=== PATIENT | female | born 1985 | race Caucasian/White ===

== ENCOUNTER 2017-01-19 14:43 | Emergency (ER) | payer OTHER ==
--- NOTE | 2017-01-19 15:17 | ED Physician Documentation ---
Sore Throat/Dental Pain - HISTORIAN Historian: patient - HPI Stated Complaint: dental pain Chief Complaint: Dental Pain Additional Information: started today Onset: hours (5) Context: Dental Caries Worsened By: heat, cold Relieved By: nothing - ROS CONST: no problems CVS/RESP: none GI/: denies: problems urinating, nausea, vomiting MS/SKIN/LYMPH: denies: muscle aches, rash, leg swelling, ankle swelling NEURO/PSYCH: none - PAST HX Past History: gum disease Immunizations: referred to PCP - SOCIAL HX Smoking History: cigarettes Alcohol Use: none Drug Use: none - FAMILY HX Family History: Yes - REVIEWED ASSESSMENTS Nursing Assessment Reviewed: Yes Vitals Reviewed: Yes Progress - Results/Orders Results/Orders: no testing ordered - Progress Progress: pt. given toradol 60 mg im in er, amoxicillin 500 mg p.o. in er Critical Care Note - Critical Care Note Total Time (mins): 0 ED Results Lab/Radiology - Lab Results Lab Results: none ordered - Radiology Radiology Impressions: none ordered - Orders Orders: ED Orders Category Date Time Status Amoxicillin [Amoxil] Med 01/19/17 15:01 Discontinued 500 mg PO NOW ONE Ketorolac Tromethamine [Toradol] Med 01/19/17 15:01 Discontinued 60 mg IM NOW ONE Dental Pain Physical Exam - EXAM General Appearance: alert, moderate distress Head/Neck: head nml inspection, trachea midline, no lymphadenopathy, thyroid nml. No: pain over sinuses Eyes: eyes nml inspection, PERRL Mouth/Throat: lips nml, pharynx nml, gum swelling around teeth (left lower molar ), other (dental richi left lower molar) Ear/Nose: nml inspection Respiratory: no resp. distress CVS: reg. rate & rhythm, heart sounds nml Abdomen: soft, no organomegaly, normal bowel sounds Extremities: non-tender Skin: warm/dry Neuro/Psych: No: weakness, numbness, anxiety, depression Discharge Clincal Impression: Dental caries Referrals: Primary Doctor,No [Primary Care Provider] - 2 Days Comments: discharged with scripts for amoxicillin, meloxicam, tizanidine and 2% viscous lidocaine. Condition: Stable Decision to Admit: NO Decision Time: 15:15
[2017-01-19] MEDS: KETOROLAC TROMETHAMINE 60 MG/2 ML VIAL IM ONE (15:30)
[2017-01-19] MEDS: AMOXICILLIN 500 MG CAPSULE PO ONE (15:30)
[2017-01-19 18:31] VITALS: BP 120/68
== END 2017-01-19 15:30 | disposition home or self-care (01) ==
LOC: ED 14:43
DX: K02.9 Dental caries, unspecified (principal)
CPT/HCPCS: 96372; 99283; J1885

== ENCOUNTER 2017-04-28 12:23 | Emergency (ER) | payer OTHER ==
--- NOTE | 2017-04-28 12:28 | ED Physician Documentation ---
Upper Respiratory Symptoms - HISTORIAN Historian: patient - HPI Stated Complaint: rash Chief Complaint: Skin Rash Onset: other (3 weeks ) Duration: intermittent episodes Context: other (area on nose and then elbows and under arms ) Associated Symptoms: denies: fever, chills, sore throat, productive cough, shortness of breath Worsened by Deep Breath: No - ROS CVS/RESP: none LYMPH: rash GI/: none NEURO/PSYCH: denies: fainting, dizziness, confusion MS/SKIN: rash. denies: joint pain, muscle aches - PAST HX Lung Disease: asthma Surgeries/Procedures: none Immunizations: referred to PCP - SOCIAL HX Smoking History: non-smoker Alcohol Use: none Drug Use: none - REVIEWED ASSESSMENTS Nursing Assessment Reviewed: Yes Vitals Reviewed: Yes <Gardenia Navarro - Last Filed: 04/28/17 13:05> - ROS CONST/EYES: eye redness, eye itching - FAMILY HX Family History: no significant history <Bill Rodriguez - Last Filed: 04/28/17 13:37> - PAST HX Allergies/Adverse Reactions: Allergies Allergy/AdvReac Type Severity Reaction Status Date / Time No Known Allergies Allergy Verified 04/28/17 12:55 Home Medications: Ambulatory Orders Medication Instructions Recorded Albuterol Sulfate [Proair 2 puff IN PRN PRN 01/19/17 Respiclick] Citalopram Hydrobromide [Celexa] 10 mg PO DAILY 01/19/17 Ciprofloxacin HCl [Cipro] 125 mg PO D 04/28/17 - VITAL SIGNS Vital Signs: Vital Signs Temp Pulse Resp BP Pulse Ox 98.1 F 72 16 110/68 97 04/28/17 12:24 04/28/17 13:26 04/28/17 13:26 04/28/17 13:26 04/28/17 13:26 Upper Respiratory Symptoms - EXAM General Appearance: no acute distress, alert EENT: other (right nare with cellulitis and small red raised areas on right inner eye ) Respiratory: no resp. distress, breath sounds nml Abdomen: non-tender CVS: reg rate & rhythm, heart sounds normal Skin: other (psorasis plaques on bilateral elbows and bilateral axilla ) Extremities: non-tender Neuro/Psych: oriented x3, neuro intact, mood/affect nml <Gardenia Navarro - Last Filed: 04/28/17 13:05> Discharge Decision to Admit: NO Date of Decison to Admit: 04/28/17 Decision Time: 13:06 <Gardenia Navarro - Last Filed: 04/28/17 13:05> <Bill Rodriguez - Last Filed: 04/28/17 13:37> Clincal Impression: Psoriasis Cellulitis Qualifiers: Site of cellulitis: face Qualified Code(s): L03.211 - Cellulitis of face Referrals: Primary Doctor,No [Primary Care Provider] - 2 Days Additional Instructions: Dr Lopez Condition: Stable Disposition: 01 HOME, SELF-CARE
[2017-04-28 13:27] VITALS: BP 110/68
== END 2017-04-28 13:26 | disposition home or self-care (01) ==
LOC: ED 12:23
DX: L40.9 Psoriasis, unspecified (principal); L03.211 Cellulitis of face
CPT/HCPCS: 99283

== ENCOUNTER 2017-10-01 10:13 | Emergency (ER) | payer BC, OTHER ==
[2017-10-01 10:25] VITALS: BP 116/53
--- NOTE | 2017-10-01 11:34 | ED Physician Documentation ---
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 is on [id number] for prevent uti Onset: days ago (4) Duration: continues in ED Recent Injury: No Context: lifting, turning, bending Where: work Severity: moderate Quality: dull, similar- prior back pain. denies: burning, sharp Associated Symptoms: denies: fever, chills, sweating, constipation Worsened By:: cough, other (any) Relieved By: remaining still - ROS CONST: no problems. denies: recent illness CVS/RESP: none EYES/ENT: none MS/SKIN/LYMPH: none Neuro/Psych: none GI/: denies: abdominal pain - PAST HX Past History: other (uti) Other History: other (asthma freq uti) Surgeries/Procedures: none Allergies/Adverse Reactions: Allergies Allergy/AdvReac Type Severity Reaction Status Date / Time No Known Allergies Allergy Verified 10/01/17 10:33 Home Medications: Ambulatory Orders Medication Instructions Recorded Citalopram Hydrobromide [Celexa] 10 mg PO DAILY 01/19/17 Ciprofloxacin HCl [Cipro] 125 mg PO D 04/28/17 - SOCIAL HX Smoking History: non-smoker Alcohol Use: none Drug Use: none - FAMILY HX Family History: no significant history - VITAL SIGNS Vital Signs: Vital Signs Temp Pulse Resp BP Pulse Ox 78 18 116/53 99 10/01/17 10:44 10/01/17 10:44 10/01/17 10:44 10/01/17 10:44 - REVIEWED ASSESSMENTS Nursing Assessment Reviewed: Yes Vitals Reviewed: Yes Low Back Pain/Injury - Physical Exam General Appearance: mild distress EENT: eye inspection normal Neck: non-tender. No: muscle spasm, painful movement of neck Resp/CVS: chest non-tender, breath sounds nml Abdomen: non-tender, other (rt flank milt palp pain---slr=pos) Back: CVA tenderness Straight Leg Raising: Positive Right Neuro/Psych: oriented x3, motor nml, sensation nml Skin: warm/dry, normal color. No: cyanosis, diaphoresis, jaundice, mottled Extremities: non-tender, normal range of motion. No: no evidence of injury, no edema Discharge Clincal Impression: acute lumbar ligt sprain, hx freq uti Referrals: Allen Morley MD [Primary Care Provider] - 2 Days Comments: home avoid lifting bending-meds Disposition: 01 HOME, SELF-CARE Decision to Admit: NO Decision Time: 11:39
[2017-10-01 13:51] LABS: APPEARANCE,URINE CLEAR (CLEAR); COLOR,URINE YELLOW (YELLOW); OCCULT BLOOD,URINE NEGATIVE (NEGATIVE); UROBILINOGEN URINE 0.2 Eu (0.2-1.0)
== END 2017-10-01 10:44 | disposition home or self-care (01) ==
LOC: ED 10:13
DX: S39.012A Strain of muscle, fascia and tendon of lower back, initial encounter (principal); X58.XXXA Exposure to other specified factors, initial encounter; Z87.440 Personal history of urinary (tract) infections
CPT/HCPCS: 81002; 99282

== ENCOUNTER 2017-12-15 13:16 | Emergency (ER) | payer BC ==
--- NOTE | 2017-12-15 14:23 | ED Physician Documentation ---
Neck Injury/Pain - HISTORIAN Historian: patient - HPI Stated Complaint: Neck pain Chief Complaint: Neck Pain Additional Information: playing with children and turned neck quickly, heard a pop and immediate pain and stiffness Onset: days ago (2) Duration: continues in ED Recent Injury: Yes Context: other (tuned head and heard a pop and immediate pain and stiffness) Where: home Other Injuries: neck Severity: moderate Quality: sharp Front/Back of Body, Lg (Color): 1 - pain Associated Symptoms: headache Exacerbated By: movement of neck Relieved By: remaining still Further Comments: no - ROS NEURO/PSYCH: depression. denies: difficulty with speech, anxiety EYES/ENT: none CVS/RESP: none CONST: no problems GI/: denies: nausea, vomiting, problems urinating, incontinence MS/SKIN/LYMPH: other (neck pain and stiffness) - PAST HX Past History: other (depression, uti's) Surgeries/Procedures: none CT/MRI: Yes Immunizations: referred to PCP Allergies/Adverse Reactions: Allergies Allergy/AdvReac Type Severity Reaction Status Date / Time No Known Allergies Allergy Verified 12/15/17 13:31 Home Medications: Ambulatory Orders Medication Instructions Recorded Citalopram Hydrobromide [Celexa] 30 mg PO DAILY 01/19/17 Ciprofloxacin HCl [Cipro] 125 mg PO D 04/28/17 - SOCIAL HX Smoking History: cigarettes Alcohol Use: none Drug Use: none - FAMILY HX Family History: no significant history - VITAL SIGNS Vital Signs: Vital Signs Temp Pulse Resp BP Pulse Ox 98.3 F 79 16 112/73 97 12/15/17 14:30 12/15/17 14:30 12/15/17 14:30 12/15/17 14:30 12/15/17 14:30 - REVIEWED ASSESSMENT Nursing Assessment Reviewed: Yes Vitals Reviewed: Yes Progress - Results/Orders Results/Orders: c-spine x-ray ordered - Progress Progress: pt. stable entire time in er Critical Care Note - Critical Care Note Total Time (mins): 0 ED Results Lab/Radiology - Lab Results Lab Results: none ordered - Radiology Radiology Impressions: cervical x-rays show straightening of cervical spine suggesting spasm - Orders Orders: ED Orders Category Date Time Status C SPINE 2 OR 3 VIEWS [RAD] Stat Exams 12/15/17 Ordered Neck Injury/Pain - Physical Exam General Appearance: alert, moderate distress EENT: nml ENT inspection, pharynx nml Neck: muscle spasm, decreased ROM, other (no vertebral point tenderness). No: lymphadenopathy, thyromegaly, subcutaneous emphysema Nexus Criteria: Nexus criteria neg Back: non-tender, painless ROM. No: vertebral point-tendernes Respiratory: chest non-tender, breath sounds nml CVS: heart sounds nml, bilateral pulses nml Abdomen: non-tender, no organomegaly, nml bowel sounds, no distention Skin: warm/dry, normal color Extremities: non-tender, normal range of motion, no evidence of injury Neuro/Psych: oriented x3, CN's nml as tested, sensation nml, motor nml, mood/ affect nml Discharge Clincal Impression: Cervical strain, acute Qualifiers: Encounter type: initial encounter Qualified Code(s): S16.1XXA - Strain of muscle, fascia and tendon at neck level, initial encounter Referrals: Allen Morley MD [Primary Care Provider] - 2 Days Comments: Discharged in stable condition with script for norflex 100 mg #14 1 pill bid and meloxicam 7.5 mg #14 p.o. bid Condition: Stable Disposition: 01 HOME, SELF-CARE Decision to Admit: NO Decision Time: 14:23
[2017-12-15 14:31] VITALS: BP 112/73
--- NOTE | 2017-12-15 18:08 | Diagnostic Imaging Report ---
RANCHO GAMBINO [facility] [address] [facility] [address] [address] Report Submission Date: December 15, 2017 2:01:33 PM CDT Patient Study Name: LUIS ANGEL FARNSWORTH Date: December 15, 2017 1:43:18 PM CDT Modality Type: DX Gender: F Description: SPINE : 83 Institution: [facility] Physician: RANCHO GAMBINO 3-view cervical spine Clinical history: C-SPINE, NECK PAIN AFTER TWISTING INJURY X2 DAYS AGO, PT STATES SHE FELT A POP AND HAS PAIN AND DECREASED ROM SINCE Findings: Examination of cervical spine in AP, lateral and open mouth views demonstrates straightening of normal cervical lordosis. Prevertebral soft tissues are within normal limits. The C1/C2 articulation is normal and the base of the odontoid is intact. No evident fracture. Impression: 1. Straightening of the normal cervical lordosis. 2. No fracture. Electronically signed on December 15, 2017 2:01:33 PM CDT by: Hero GUZMAN
== END 2017-12-15 14:30 | disposition home or self-care (01) ==
LOC: ED 13:16
DX: S16.1XXA Strain of muscle, fascia and tendon at neck level, initial encounter (principal); Y93.F9 Activity, other caregiving
CPT/HCPCS: 72040

== ENCOUNTER 2018-02-26 11:59 | Emergency (ER) | payer BC ==
[2018-02-26 12:19] VITALS: BP 113/73
--- NOTE | 2018-02-26 12:47 | ED Physician Documentation ---
Low Back Pain - HISTORIAN Historian: patient - HPI Stated Complaint: low back pain Chief Complaint: Low Back Pain/ Injury Additional Information: onset 2 d ago recurrent lo backk pain no rad - centrally located l3-4 midline and to lt-musc spasm no new injuriess but has worked sev [employer]-no episodes several months-ibu 2400 per day min to no help. History: denies: history of chronic pain: Duration: continues in ED, worse (perhaps) Recent Injury: No Severity: moderate Quality: burning, dull, similar- prior back pain Associated Symptoms: other (pain w/ going to sitting and to rising posn-helps to keep back straight). denies: fever, chills, sweating, constipation, incontinence, nausea, vomiting, problems urinating, difficulty walking Worsened By:: movement to RT flexion, movement to LT flexion. denies: cough, deep breaths Relieved By: remaining still (has used heat pad) - ROS CONST: no problems CVS/RESP: none EYES/ENT: none MS/SKIN/LYMPH: none Neuro/Psych: none GI/: denies: abdominal pain, black stools - PAST HX Past History: back injury, other (depression recurrent uti) Surgeries/Procedures: none Allergies/Adverse Reactions: Allergies Allergy/AdvReac Type Severity Reaction Status Date / Time No Known Allergies Allergy Verified 02/26/18 12:14 Home Medications: Ambulatory Orders Medication Instructions Recorded Citalopram Hydrobromide [Celexa] 30 mg PO DAILY 01/19/17 Ciprofloxacin HCl [Cipro] 125 mg PO D 04/28/17 - SOCIAL HX Smoking History: less than 1 pack/day Alcohol Use: none Drug Use: none - FAMILY HX Family History: no significant history - VITAL SIGNS Vital Signs: Vital Signs Temp Pulse Resp BP Pulse Ox 98.3 F 82 16 113/73 97 02/26/18 12:15 02/26/18 12:15 02/26/18 12:15 02/26/18 12:15 02/26/18 12:15 - REVIEWED ASSESSMENTS Nursing Assessment Reviewed: Yes Vitals Reviewed: Yes Low Back Pain/Injury - Physical Exam General Appearance: mild distress, moderate distress EENT: eye inspection normal Neck: non-tender Resp/CVS: chest non-tender, breath sounds nml, heart sounds nml Abdomen: non-tender Back: vertebral point-tendernes (L 2-3-4 w/ lt lspinal musc spasm) Straight Leg Raising: Positive Left Neuro/Psych: oriented x3, sensation nml, mood/affect nml Skin: warm/dry, normal color. No: cyanosis, diaphoresis, jaundice Extremities: non-tender, normal range of motion, no evidence of injury Discharge Clincal Impression: acute exaberation lo back pain Referrals: Allen Morley MD [Primary Care Provider] - 2 Days Comments: hmp w/meds Condition: Good Disposition: 01 HOME, SELF-CARE Decision to Admit: NO Decision Time: 13:07
== END 2018-02-26 12:47 | disposition home or self-care (01) ==
LOC: ED 11:59
DX: M54.5 Low back pain (principal)

== ENCOUNTER 2018-09-06 16:17 | Emergency (ER) | payer BC ==
--- NOTE | 2018-09-06 16:48 | ED Physician Documentation ---
Abdominal Pain - HISTORIAN Historian: patient - HPI Stated Complaint: abdominal pain Chief Complaint: Abdominal Pain Additonal Information: Patient presents to ED with a 10 day history of LLQ, RLQ pain and nausea. Patient states she was hospitalized in [place] over the past 10 days after ingesting tylenol, ibuprofen and bendryl in an attempt to commit suicide. She states she ingested about 400 pills. During her hospital stay she had abdominal pain the entire time. At discharge she was given Roxicodone and Zofran. Her symptoms have not improved. Onset: hours (10 days) Duration: constant Timing: still present Context: denies: out of country travel, bad food Severity: moderate Quality: aching, dull, sharp Associated Symptoms: nausea. denies: fever, chills, vomiting, diarrhea Exacerbated by: walking Relieved by: nothing - ROS CONST: no problems GI/: none CVS/RESP: none EYES/ENT: none MS/SKIN/LYMPH: none NEURO/PSYCH: none - SOCIAL HX Smoking History: non-smoker Alcohol Use: none Drug Use: none - FAMILY HX Family History: none - PAST HX Past History: none Ischemic Bowel Risk Factors: none Other History: none Surgeries/Procedures: none Home Medications: Ambulatory Orders Medication Instructions Recorded Ciprofloxacin HCl [Cipro] 250 mg PO BID 09/06/18 Hydroxyzine Pamoate [Vistaril] 25 mg PO TID 09/06/18 Trazodone HCl 50 mg PO DAILY 09/06/18 Vortioxetine Hydrobromide 5 mg PO DAILY 09/06/18 [Trintellix] Allergies/Adverse Reactions: Allergies Allergy/AdvReac Type Severity Reaction Status Date / Time No Known Allergies Allergy Verified 02/26/18 12:14 - VITAL SIGNS Vital Signs: Vital Signs Temp Pulse Resp BP Pulse Ox 88 16 131/84 95 09/06/18 16:27 09/06/18 16:27 09/06/18 16:27 09/06/18 16:27 - REVIEWED ASSESSMENTS Nursing Assessment Reviewed: Yes Vitals Reviewed: Yes ED Results Lab/Radiology - Lab Results Lab Results: Lab Results 09/06/18 09/06/18 09/06/18 18:35 18:35 18:35 WBC 9.80 K/ul K/ul (4.00-12.00) RBC 4.49 M/ul M/ul (3.90-5.20) Hgb 13.2 g/dL g/dL (12.0-16.0) Hct 40.1 % % (34.5-46.5) MCV 89.0 fl fl (80.0-100.0) MCH 29.3 pg pg (28.0-34.0) MCHC 32.8 g/dL g/dL (30.0-36.0) RDW 13.5 % % (11.3-14.3) Plt Count 338 K/mm3 K/mm3 (130-400) Neut % (Auto) 62.7 % % (39.0-79.0) Lymph % (Auto) 25.1 % % (16.0-50.0) Woods % (Auto) 7.6 % % (0.0-11.0) Eos % (Auto) 3.9 % % (0.0-6.8) Baso % (Auto) 0.7 (0.0-1.5) Neut # (Auto) 6.2 # k/uL # k/uL (1.4-7.7) Lymph # (Auto) 2.5 # k/uL # k/uL (0.6-4.0) Woods # (Auto) 0.8 # k/uL # k/uL (0.0-0.9) Eos # (Auto) 0.4 # k/uL # k/uL (0.0-0.6) Baso # (Auto) 0.1 # k/uL # k/uL (0.0-0.5) Sodium 137 mmol/L mmol/L (136-145) Potassium 3.9 mmol/L mmol/L (3.5-5.1) Chloride 104 mmol/L mmol/L (98-107) Carbon Dioxide 27 mmol/L mmol/L (22-30) BUN 7 mg/dL mg/dL (7-17) Creatinine 0.60 mg/dL mg/dL (0.52-1.04) Estimated Creat Clear 164 Est GFR ( Amer) > 60 (60 - ) Est GFR (Non-Af Amer) > 60 (60 - ) Glucose 83 mg/dL mg/dL (74-106) Calcium 9.3 mg/dL mg/dL (8.4-10.2) Total Bilirubin 0.2 mg/dL mg/dL (0.2-1.3) AST 34 U/L U/L (15-46) ALT 49 U/L U/L (13-69) Alkaline Phosphatase 97 U/L U/L (38-126) Total Protein 6.7 g/dL g/dL (6.3-8.2) Albumin 4.1 g/dL g/dL (3.5-5.0) Serum HCG, Qual Negative (NEGATIVE) - Radiology Radiology Impressions: CT A/P W/ CONTRAST, LLQ, RUQ ABD PAIN/NAUSEA. PT STATES GENERALIZE ABD PAIN FOR A WEEK, WORSE TODAY, NO SURGICAL HISTORY (DICOM Hx) TECHNIQUE: 5 mm contiguous axial images of the abdomen and pelvis with IV contrast. With; 95 CC OMNIPAQUE FINDINGS: Fatty changes present in the liver. Spleen adrenal glands and pancreas are unremarkable. The gallbladder is contracted with possible gallstones. Kidneys enhance normally. The colon is distended with retained fecal material. The appendix is unremarkable. The pelvis shows ovarian cysts pelvic pain varices and prominent endometrium. The bladder is unremarkable. Small inguinal lymph nodes are present. One of these lymph node measures up to 1.5 cm. IMPRESSION: Contracted gallbladder with possible stones. Ultrasound followup is recommended after fasting Constipation Pelvic vein varices and ovarian cysts.. Negative the appendix 1.5 cm left inguinal lymph node Electronically signed on Sep 06, 2018 6:37:09 PM COTTON STRIPPER by: Carl Camara - Orders Orders: ED Orders Category Date Time Status Place IV Lock 1T Care 09/06/18 16:[address] ABD & PELVIS W/ CON Stat Exams 09/06/18 Taken CBC/PLATELET/DIFF Routine Lab 09/06/18 18:35 Completed CMP Routine Lab 09/06/18 18:35 Completed SERUM HCG Stat Lab 09/06/18 18:35 Completed UA W/MICRO IF INDICATED Routine Lab 09/06/18 16:38 Ordered Abdominal Pain Physical Exam - Physical Exam General Appearance: no acute distress, alert EENT: МАРИЯ NECK: normal inspection, supple RESPIRATORY: no resp distress, chest non-tender, breath sounds normal CVS: reg rate & rhythm, heart sounds normal ABDOMEN: soft, normal bowel sounds, tenderness (LLQ ) BACK: CVA tenderness (R) SKIN: warm/dry EXTREMITIES: non-tender NEURO: oriented X3 Vital Signs: Vital Signs Temp Pulse Resp BP Pulse Ox 88 16 131/84 95 09/06/18 16:27 09/06/18 16:27 09/06/18 16:27 09/06/18 16:27 Discharge Clincal Impression: Gall stones Constipation Qualifiers: Constipation type: unspecified constipation type Qualified Code(s): K59.00 - Constipation, unspecified Referrals: Allen Morley MD [Primary Care Provider] - 2 Days Additional Instructions: 1. Add a daily bowel regimen to maintain 1-2 bowel movements per day. Senokot, colace, Miralax are good choices for daily use. Dulcolax or Fleets enema may be used for constipation lasting more than 2 days. 2. Pain medications, such as Roxicodone, cause constipation. Avoid using them. 3. Drink plenty of fluids, 64 ounces per day. 4. Follow up with PCP within 1 week to further evaluate Gall stones, you may need an Ultrasound 5. Return to ER with new or worsening symptoms. Condition: Stable Disposition: HOME, SELF-CARE Decision to Admit: NO Date of Decison to Admit: 09/06/18 Decision Time: 19:17
[2018-09-06 18:50] LABS: EOSINOPHILS % 3.9 % (0.0-6.8); MEAN CORPUSCULAR HEMOGLOBIN 29.3 pg (28.0-34.0); MONOCYTES % 7.6 % (0.0-11.0)
[2018-09-06 18:51] LABS: BASOPHILS % 0.7 (0.0-1.5); NEUTROPHILS # 6.2 # k/uL (1.4-7.7)
[2018-09-06 18:57] LABS: eGFR (Non-African) > 60
[2018-09-07 00:44] VITALS: BP 135/76
--- NOTE | 2018-09-07 04:23 | Diagnostic Imaging Report ---
SHANNAN LERNER [facility] [address] [facility] [address] [place], [place]. 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 PT STATES GENERALIZE ABD PAIN FOR A WEEK, WORSE TODAY, NO SURGICAL HISTORY (Hx) / ITS.REASON LLQ, RUQ abdominal pain, nausea Note time : 09/06/2018 7:12:36 PM User : Madhuri Cuha CT A/P W/ CONTRAST, LLQ, RUQ ABD PAIN/NAUSEA. PT STATES GENERALIZE ABD PAIN FOR A WEEK, WORSE TODAY, NO SURGICAL HISTORY (DICOM Hx) TECHNIQUE: 5 mm contiguous axial images of the abdomen and pelvis with IV contrast. With; 95 CC OMNIPAQUE FINDINGS: Fatty changes present in the liver. Spleen adrenal glands and pancreas are unremarkable. The gallbladder is contracted with possible gallstones. Kidneys enhance normally. The colon is distended with retained fecal material. The appendix is unremarkable. The pelvis shows ovarian cysts pelvic pain varices and prominent endometrium. The bladder is unremarkable. Small inguinal lymph nodes are present. One of these lymph node measures up to 1.5 cm. IMPRESSION: Contracted gallbladder with possible stones. Ultrasound followup is recommended after fasting Constipation Pelvic vein varices and ovarian cysts.. Negative the appendix 1.5 cm left inguinal lymph node Electronically signed on Sep 06, 2018 6:37:09 PM FEED HOUSE SUPERVISOR by: Carl Camara [facility]
== END 2018-09-06 19:23 | disposition home or self-care (01) ==
LOC: ED 16:17
DX: K80.80 Other cholelithiasis without obstruction (principal); K59.00 Constipation, unspecified
CPT/HCPCS: 36415; 74177; 80053; 84703; 85025; 99282; 99283; Q9967; S1016